=== PATIENT | male | born 1985 | race Caucasian/White ===

== ENCOUNTER 2019-12-21 14:52 | Emergency (ER) | payer MEDICAID ==
[~2019-12-21] VITALS: Ht 180.3 cm; Wt 120.5 kg
[2019-12-21] MEDS ORDERED: TETanus/Pertussis (Acell)/Diphther VAC/PF (Tdap-Adult) 0.5ml syringe IMVAC ONE (16:10)
[2019-12-21] MEDS ORDERED: DOXY100C2 PO (16:21)
--- NOTE | 2019-12-21 16:54 | NUR ---
Foot wound placed in betadine soak, will cleanse and bandage prior to discharge.
[2019-12-21 17:22] VITALS: BP 136/74
== END 2019-12-21 17:25 | disposition home or self-care (01) ==
LOC: ER 14:53
DX: S91.112A Laceration without foreign body of left great toe without damage to nail, initial encounter (principal); Z88.0 Allergy status to penicillin; W22.8XXA Striking against or struck by other objects, initial encounter; Y93.89 Activity, other specified; Y92.89 Other specified places as the place of occurrence of the external cause; Y99.9 Unspecified external cause status
CPT/HCPCS: 73660; 90471; 90715; 99283